=== PATIENT | female | born 1990 | race African-American/Black ===

== ENCOUNTER 2017-06-08 20:52 | Emergency (ER) | payer OTHER, SELFPAY ==
[2017-06-08 21:28] LABS: Pregnancy Test - Urine (BHCG) POSITIVE (Negative); Pregu Control Background? CLEAR/WHITE (CLR/WHITE); Pregu Control Bar Appear? YES (CONTROL BAR)
[2017-06-08 21:29] LABS: Bilirubin Negative (Negative); Blood, Urine Negative (Negative); Clarity Clear (Clear); Glucose, Urine (Dipstick) Negative (Negative); Leukocyte Negative (Negative); Nitrite Negative (Negative); Protein, Urine (Dipstick) Negative (Neg-Trace); Specific Gravity 1.025 (1.002-1.036); Specific Gravity, Urine 1.025 (1.005-1.030); pH, Urine 7.5 (5.0-9.0)
[2017-06-08 22:00] LABS: ALT (SGPT) 15 U/L (8-55); AST (SGOT) 14 U/L (5-34); Albumin 4.1 g/dL (3.5-5.0); Alkaline Phosphatase 59 U/L (40-150); Anion Gap 13 mmol/L (10-20); BUN (Urea Nitrogen) 13 mg/dL (7.0-18.7); Bilirubin, Total 0.4 mg/dL (0.2-1.2); Calc. Creatinine Clearance 0 mL/min (70-130); Calcium 9.2 mg/dL (7.8-10.44); Carbon Dioxide 22 mmol/L (22-29); Chloride 106 mmol/L (98-107); Estimated GFR-MDRD Greater than 90; Globulin 2.9 g/dL (2.4-3.5); Glucose 88 mg/dL (70-105); Lipase 53 U/L (8-78); Potassium 3.9 mmol/L (3.5-5.1); Sodium 137 mmol/L (136-145)
[2017-06-08 22:12] LABS: #Basophils 0.1 thou/uL (0.0-0.2); #Lymphocytes 2.4 thou/uL (1.20-3.40); #Monocytes 0.7 thou/uL (0.11-0.59); #Neutrophils 4.1 thou/uL (1.40-6.50); %Basophils 1.4 % (0.0-1.0); %Eosinophils 0.6 % (0.0-10.0); %Lymphocytes 32.9 % (21.0-51.0); %Monocytes 8.9 % (0.0-10.0); %Neutrophils 56.1 % (42.0-75.0); Hemoglobin 13.1 g/dL (12.0-16.0); Mean Corpuscular HGB CONC 35.3 g/dL (32.0-36.0); Mean Corpuscular Hemoglobin 31.4 pg (27.0-31.0); Mean Platelet Volume 8.5 fL (7.4-10.4); Platelet Count 190 thou/uL (130-400); Red Blood Cell (RBC) Count 4.15 mill/uL (4.20-5.40); White Blood Cell (WBC) Count 7.3 thou/uL (4.8-10.8)
--- NOTE | 2017-06-08 22:49 | ULT ---
PELVIC ULTRASOUND 06/08/17 COMPARISON: None. HISTORY: 27-year-old female with abdominal pain. TECHNIQUE: Multiplanar prince scale sonographic imaging of the pelvis obtained with endovaginal imaging. Ovaries a re assessed with color flow and spectral analysis. FINDINGS: The uterus measures 8.3 x 4.3 x 5.1 cm and contains an intrauterine gestational sac. The right ovary measures 3.2 x 2.2 x 2.0 cm and the left ovary measures 3.5 x 2.3 x 2.2 cm. There is normal blood luis w within both ovaries without evidence for mass lesion. The gestational sac contains a single pole with a heart rate of 130 beats per minute. No evidence for subchorionic hemorrhage. A yolk sac is noted. There is trace fluid in the pelvic cul-de -sac. [place]-rump length is 0.8 cm, correlating with a 6 week, 6 day gestation and gestational sac diameter is 2.1 cm, correlating with a 7 week, 0 day gestation. Average age based on ultrasound is 7 weeks, 0 days with an estimated date of delivery on 01/25/18. IMPRESSION: Intrauterine gestation as above. POS: [facility]
[2017-06-08] MEDS ORDERED: Acetaminophen 500 MG TAB ONE (22:58)
[2017-06-08] MEDS ORDERED: Ondansetron ODT 4 MG TAB ONE (22:58)
== END 2017-06-08 23:07 | disposition home or self-care (01) ==
LOC: SCSER 20:52
DX: O99.89 Other specified diseases and conditions complicating pregnancy, childbirth and the puerperium (principal); R10.9 Unspecified abdominal pain; Z3A.00 Weeks of gestation of pregnancy not specified
CPT/HCPCS: 76856; 80053; 81003; 81025; 83690; 84702; 85025; Q0162

== ENCOUNTER 2017-06-13 15:28 | Emergency (ER) | payer SELFPAY ==
--- NOTE | 2017-06-13 16:24 | ULT ---
PELVIC ULTRASOUND: 06/13/2017 HISTORY: Positive . The patient is spotting. Pelvic pain. COMPARISON: 06/08/2017 FINDINGS: Again noted is evidence of an intrauterine gestation with a fluid collection in the endometrial canal , containing both a pole and a yolk sac. [place]-rump length measures approximately 1.2 cm, cons istent with a gestational age by ultrasound of 7 weeks 3 days. Cardiac Doppler does demonstrate feta l heart tones with a heart rate of 147 beats per minute. No subchorionic hemorrhage is appreci ated on this examination. The ovaries demonstrate a normal sonographic appearance bilaterally, with the right ovary measures 3. 2 cm x 1.7 cm x 1.7 cm and the left ovary measuring 3.1 cm x 1.9 cm x 1.9 cm. Doppler evaluation of each ovary does demonstrate arterial flow in each ovaries. No free fluid is seen in the cul-de-sac. There has been no interval change, compared to the prior ex am. The uterus measures 9.6 cm x 6.3 cm x 5.4 cm. IMPRESSION: Evidence of an intrauterine gestation with heart tones documented. Gestational age by measurem ent of the crown-rump length is 7 weeks 3 days. POS: [facility]
[2017-06-13 16:39] LABS: Bilirubin Negative (Negative); Blood, Urine Trace (Negative); Clarity Clear (Clear); Glucose, Urine (Dipstick) Negative (Negative); Leukocyte Trace (Negative); Nitrite Negative (Negative); Protein, Urine (Dipstick) Negative (Neg-Trace); Specific Gravity, Urine 1.008 (1.002-1.036); Urobilinogen 0.2 mg/dL (0.2-1.0)
[2017-06-13 16:42] LABS: ALT (SGPT) 11 U/L (8-55); AST (SGOT) 15 U/L (5-34); Albumin 4.2 g/dL (3.5-5.0); Alkaline Phosphatase 57 U/L (40-150); Anion Gap 15 mmol/L (10-20); BUN (Urea Nitrogen) 12 mg/dL (7.0-18.7); Bilirubin, Total 0.3 mg/dL (0.2-1.2); Calc. Creatinine Clearance 0 mL/min (70-130); Calcium 9.2 mg/dL (7.8-10.44); Carbon Dioxide 19 mmol/L (22-29); Chloride 109 mmol/L (98-107); Estimated GFR-MDRD Greater than 90; Glucose 99 mg/dL (70-105); Lipase 73 U/L (8-78); Potassium 3.9 mmol/L (3.5-5.1); Protein, Total 7.2 g/dL (6.0-8.3); Sodium 139 mmol/L (136-145)
[2017-06-13 16:50] LABS: Bacteria/HPF 1+ HPF (None Seen); RBC/HPF 0-3 HPF (0-3); WBC/HPF 0-3 HPF (0-3)
[2017-06-13 16:54] LABS: Band 3 % (5-11); Eosinophils 1 % (0-10); Hemoglobin 12.7 g/dL (12.0-16.0); Lymphocytes 12 % (21-51); MDiff Complete? YES; Mean Corpuscular HGB CONC 35.6 g/dL (32.0-36.0); Mean Corpuscular Hemoglobin 31.7 pg (27.0-31.0); Mean Platelet Volume 8.9 fL (7.4-10.4); Monocytes 7 % (0-10); Neutrophil 76 % (42-75); PLT Morphology Comment Appears Adequate; Platelet Count 184 thou/uL (130-400); RBC Distribution Width 10.9 % (11.5-14.5); RBC Morphology Normal; Red Blood Cell (RBC) Count 4.01 mill/uL (4.20-5.40); White Blood Cell (WBC) Count 9.6 thou/uL (4.8-10.8)
== END 2017-06-13 17:00 | disposition home or self-care (01) ==
LOC: SCSER 15:28
DX: O20.0 Threatened abortion (principal); Z3A.01 Less than 8 weeks gestation of pregnancy
CPT/HCPCS: 76856; 80053; 81003; 81015; 83690; 85025; 86900; 86901; 96360